=== PATIENT | female | born 1950 | race Caucasian/White ===

== ENCOUNTER → 2022-10-17 10:02 | Outpatient (BNVA) | payer BC, SELFPAY | PROVIDERS: Visit Provider Podiatrist Foot & Ankle Surgery | DX: M79.672 Pain in left foot (principal); M79.5 Residual foreign body in soft tissue | CPT/HCPCS: 73630 ==

== ENCOUNTER 2022-11-16 15:43 | Outpatient (CLI) | payer BC, SELFPAY ==
--- NOTE | 2022-11-16 16:00 | MR_ITS ---
WS: [id number] MRI LEFT FOOT CONTRAST. COMPARISON: Radiograph 10/17/2022 Multiplanar, multisequence imaging is performed without contrast. History: Pain medial foot without trauma. Mild hallux valgus. No marrow edema or fractures. No foreign body or soft tissue abnormality. Marker is placed along the medial foot at the level of the mid first metatarsal. No soft tissue or bone abno rmality in this location. The visualized tendon and ligaments demonstrate normal signal. Very mild na rrowing of the intertarsal joint spaces. Not a significant amount of osteophytosis or subchondral cys tic changes. No tendinopathy or tendinitis. MR/MR foot LT wo con* [id number] IMPRESSION: 1. No foreign body or fracture. 2. Mild hallux valgus. 3. 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
== END 2022-11-16 15:44 | disposition home or self-care (01) ==
PROVIDERS: PCP Emergency Medicine; Visit Provider Podiatrist Foot & Ankle Surgery
DX: S90.852A Superficial foreign body, left foot, initial encounter (principal); X58.XXXA Exposure to other specified factors, initial encounter; M20.12 Hallux valgus (acquired), left foot; M19.072 Primary osteoarthritis, left ankle and foot
CPT/HCPCS: 73718

== ENCOUNTER 2022-12-07 11:57 | Outpatient (CLI) | payer BC, SELFPAY | END 2022-12-07 11:58 | disposition home or self-care (01) | LOC: SPT 11:57 | PROVIDERS: PCP Emergency Medicine; Visit Provider Podiatrist Foot & Ankle Surgery | DX: Z46.89 Encounter for fitting and adjustment of other specified devices (principal); M72.2 Plantar fascial fibromatosis; M79.672 Pain in left foot | CPT/HCPCS: 97760; L4397 ==